=== PATIENT | female | born 1995 | race Caucasian/White ===

== ENCOUNTER 2018-04-27 19:45 | Emergency (ER) | payer OTHER ==
--- NOTE | 2018-04-27 20:03 | EDM.PDOC ---
ED HPI GENERAL MEDICAL PROBLEM - General Chief Complaint: Lower Extremity Injury/Pain Stated Complaint: HURT RT ANKLE AT WORK Time Seen by Provider: 04/27/18 19:47 Source of Information: Reports: Patient History Limitations: Reports: No Limitations - History of Present Illness INITIAL COMMENTS - FREE TEXT/NARRATIVE: HISTORY AND PHYSICAL: History of present illness: Patient is a 22-year-old female who presents to the emergency room today with complaints of right ankle pain. She states she rolled her ankle while at work yesterday. Since that time she has been resting, icing and elevating the affected extremity but has not found relief. She states today she had been walking on her affected extremity all day and has had increased pain. Review of systems: As per history of present illness and below otherwise all systems reviewed and negative. Past medical history: As per history of present illness and as reviewed below otherwise noncontributory. Surgical history: As per history of present illness and as reviewed below otherwise noncontributory. Social history: No reported history of drug or alcohol abuse. Family history: As per history of present illness and as reviewed below otherwise noncontributory. Physical exam: General: Well-developed and well-nourished 22-year-old female. Alert and oriented. Nontoxic appearing and in no acute distress. HEENT: Atraumatic, normocephalic, pupils equal and reactive bilaterally, negative for conjunctival pallor or scleral icterus, mucous membranes moist, throat clear, neck supple, nontender, trachea midline. No drooling or trismus noted. No meningeal signs Lungs: Clear to auscultation, breath sounds equal bilaterally, chest nontender. Heart: S1S2, regular rate and rhythm without overt murmur Abdomen: Soft, nondistended, nontender. Negative for masses or hepatosplenomegaly. Negative for costovertebral tenderness. Pelvis: Stable nontender. Genitourinary: Deferred. Rectal: Deferred. Skin: Intact, warm, dry. No lesions or rashes noted. Extremities: Moves all extremities per self without difficulty or deficits, mild tenderness to the anterior and lateral malleolus on the right. Strong pedal and pretibial pulse area and capillary refill less than 3 seconds, negative for cords or calf pain. Neurovascular unremarkable. Neuro: Awake, alert, oriented. Cranial nerves II through XII unremarkable. Cerebellum unremarkable. Motor and sensory unremarkable throughout. Exam nonfocal. Notes: X-ray shows no evidence of fracture or dislocation. Place patient in stirrup/ Aircast splint along with crutches. Supportive care measures were reviewed and discussed. She voices understanding and is agreeable to plan of care. Denies any further questions or concerns at this time. Diagnostics: X-ray Therapeutics: Stirrup splint, crutches Prescription: Diclofenac 50 mg TID PRN Impression: Right Ankle Pain Plan: 1. Rest, ice, elevate the affected extremity. Please wear the splint as directed. 2. Tylenol and/or Ibuprofen as needed for pain management. 3. Follow up with the Orthopedic provider as we discussed. Return to the ED as needed and as discussed. Definitive disposition and diagnosis as appropriate pending reevaluation and review of above. - Related Data Allergies Allergy/AdvReac Type Severity Reaction Status Date / Time No Known Allergies Allergy Verified 06/04/16 07:26 Home Meds: Home Meds Control 1 cap PO DAILY 06/04/16 [History] Past Medical History - Past Surgical History HEENT Surgical History: Reports: Adenoidectomy, Myringotomy w Tube(s), Tonsillectomy, Other (See Below) Social & Family History - Family History Family Medical History: Noncontributory Review of Systems - Review of Systems Review Of Systems: ROS reveals no pertinent complaints other than HPI. ED EXAM, GENERAL - Physical Exam Exam: See Below (See dictation) Course - Vital Signs Last Recorded V/S: Last Vital Signs Temp 97.8 F 04/27/18 20:07 Pulse Resp BP Pulse Ox - Orders/Labs/Meds Orders: Active Orders 24 hr Category Date Time Status Ankle Min 3V Rt [CR] Stat Exams 04/27/18 19:47 Ordered DME for Discharge [COMM] Stat Oth 04/27/18 19:47 Ordered Departure - Departure Time of Disposition: 20:32 Disposition: Home, Self-Care 01 Clinical Impression: Right ankle injury Qualifiers: Encounter type: initial encounter Qualified Code(s): S99.911A - Unspecified injury of right ankle, initial encounter - Discharge Information Instructions: Ankle Sprain, [id number] Forms: ED Department Discharge Additional Instructions: The following information is given to patients seen in the emergency department who are being discharged to home. This information is to outline your options for follow-up care. We provide all patients seen in our emergency department with a follow-up referral. The need for follow-up, as well as the timing and circumstances, are variable depending upon the specifics of your emergency department visit. If you don't have a primary care physician on staff, we will provide you with a referral. We always advise you to contact your personal physician following an emergency department visit to inform them of the circumstance of the visit and for follow-up with them and/or the need for any referrals to a consulting specialist. The emergency department will also refer you to a specialist when appropriate. This referral assures that you have the opportunity for follow-up care with a specialist. All of these measure are taken in an effort to provide you with optimal care, which includes your follow-up. Under all circumstances we always encourage you to contact your private physician who remains a resource for coordinating your care. When calling for follow-up care, please make the office aware that this follow-up is from your recent emergency room visit. If for any reason you are refused follow-up, please contact the [facility] Emergency Department at and asked to speak to the emergency department charge nurse. [facility] [address] [place] [address] [id number] [facility] - [facility] Professional [address], [address] [place] [address] 1. Rest, ice, elevate the affected extremity. Please wear the splint as directed. 2. Tylenol and/or Ibuprofen as needed for pain management. 3. Follow up with the Orthopedic provider as we discussed. Return to the ED as needed and as discussed. - My Orders Last 24 Hours: My Active Orders 04/27/18 19:47 Ankle Min 3V Rt [CR] Stat DME for Discharge [COMM] Stat - Assessment/Plan Last 24 Hours: My Active Orders 04/27/18 19:47 Ankle Min 3V Rt [CR] Stat DME for Discharge [COMM] Stat
[2018-04-27 20:49] VITALS: BP 119/72
--- NOTE | 2018-04-28 13:04 | CR ---
EXAM DATE: 04/27/18 PATIENT'S AGE: 22 Patient: ROMAINE GIRARD Facility: [place], [place] Site . Site : 1996 Study: XRay Extremity Right ankle [id number]/16/2018 8:24:16 PM Ordering Physician: Doctor Burrows Final Report: Indication: Injury and pain Technique: Right ankle 3 views. Comparison: None Findings: Bones: Alignment is normal. No fractures or bone lesions. Joint spaces: Unremarkable. Soft tissues: Unremarkable. Impression: No sign of acute injury. Dictated by Ant Meeks MD @ Apr 27 2018 8:34PM (Electronic Signature) Report Signed by Proxy. ARGENIS
== END 2018-04-27 20:49 | disposition home or self-care (01) ==
LOC: MW.ED 19:45
DX: S99.911A Unspecified injury of right ankle, initial encounter (principal); X50.1XXA Overexertion from prolonged static or awkward postures, initial encounter; Y99.0 Civilian activity done for income or pay; Z79.3 Long term (current) use of hormonal contraceptives
CPT/HCPCS: 73610-26-RT; 73610-RT; 99283

== ENCOUNTER 2018-05-13 21:58 | Inpatient (IN) | payer OTHER ==
[2018-05-13] MEDS ORDERED: Sodium Chloride 0.9% 2.5 ML Syringe FLUSH PRN (22:27)
[2018-05-13] MEDS ORDERED: Sodium Chloride 0.9% 1,000 ML IV ONE (22:27)
[2018-05-13] MEDS ORDERED: Sodium Chloride 0.9% 10 ML Syringe FLUSH PRN (22:27)
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
[2018-05-13 22:42] LABS: CHLORIDE,CL 103 mmol/L (98-107); SODIUM,NA 137 mmol/L (136-145)
[2018-05-13] MEDS ORDERED: Iopamidol 755 MG/ML 500 ML Multipack Bottle IVPUSH STA (23:10)
[2018-05-14] MEDS ORDERED: Lidocaine 1% 50 ML MDV ONE (01:34)
[2018-05-14] MEDS ORDERED: Lidocaine 1% with EPINEPHrine 1:100,000 20 ML MDV ONE (01:37)
[2018-05-14] MEDS ORDERED: Morphine 2 MG/ML Syringe ONE (01:44)
[2018-05-14] MEDS ORDERED: Morphine 10 MG/ML Syringe ONE (01:51)
[2018-05-14] MEDS ORDERED: Morphine 2 MG/ML Syringe IVPUSH ONE (02:09)
[2018-05-14] MEDS ORDERED: Ondansetron 4 MG/2 ML SDV IVPUSH PRN (02:37)
[2018-05-14] MEDS ORDERED: Morphine 2 MG/ML Syringe IVPUSH PRN (02:38)
[2018-05-14] MEDS ORDERED: ceFAZolin 2 GM in Premix Bag 1 BAG IV ONE (02:39)
[2018-05-14] MEDS ORDERED: Lactated Ringers 1,000 ML IV SCH (02:45)
--- NOTE | 2018-05-14 02:49 | PCM.OPNOTE ---
- General Post-Op/Procedure Note Date of Surgery/Procedure: 05/14/18 Operative Procedure(s): chest tube placement to L chest Findings: L ptx, with small component of tension ptx, 20 fr chest tube placed; cxr no ptx , tube is in good position; [id number] Pre Op Diagnosis: L ptx Post-Op Diagnosis: Same Anesthesia Technique: Moderate Sedation Primary Surgeon: Og Calixto Complications: None Condition: Good
[2018-05-14] MEDS ORDERED: Morphine 10 MG/ML Syringe IVPUSH ONE (02:53)
--- NOTE | 2018-05-14 02:53 | PCM.SN ---
- Free Text/Narrative Note: ptx L, 20 fr chest tube placed; ptx resolved; on 20cm water suction; pt doing fine
[2018-05-14] MEDS ORDERED: Lidocaine 1% with EPINEPHrine 1:100,000 20 ML MDV INJECT ONE (02:58)
[2018-05-14] MEDS: Acetaminophen/oxyCODONE 325-5 MG Tab PO PRN ×4 (05:17→20:14)
--- NOTE | 2018-05-14 10:47 | PCM.SURGPN ---
- General Info Date of Service: 05/14/18 POD#: 0 Functional Status: Reports: Pain Controlled - Review of Systems General: Reports: No Symptoms Cardiovascular: Reports: No Symptoms Gastrointestinal: Reports: No Symptoms (collin po, denied SOB/chest pain) - Patient Data Vitals - Most Recent: Last Vital Signs Temp 98.6 F 05/14/18 08:00 Pulse 85 05/14/18 08:00 Resp 18 05/14/18 08:00 BP 123/80 05/14/18 08:00 Pulse Ox 100 05/14/18 08:00 Weight - Most Recent: 119 lb 0.794 oz I&O - Last 24 Hours: Intake & Output 05/13/18 05/14/18 05/14/18 22:59 06:59 14:59 Intake Total 60 Output Total 20 Balance 40 Lab Results Last 24 Hrs: Laboratory Results - last 24 hr 05/13/18 05/13/18 05/13/18 Range/Units 22:00 22:00 22:00 WBC 17.06 H (4.0-11.0) K/uL RBC 4.81 (4.30-5.90) M/uL Hgb 13.4 (12.0-16.0) g/dL Hct 39.4 (36.0-46.0) % MCV 81.9 (80.0-98.0) fL MCH 27.9 (27.0-32.0) pg MCHC 34.0 (31.0-37.0) g/dL RDW Std Deviation 40.1 (28.0-62.0) fl RDW Coeff of David 13 (11.0-15.0) % Plt Count 373 (150-400) K/uL MPV 9.00 (7.40-12.00) fL Neut % (Auto) 76.2 (48.0-80.0) % Lymph % (Auto) 15.9 L (16.0-40.0) % Coal % (Auto) 7.2 (0.0-15.0) % Eos % (Auto) 0.4 (0.0-7.0) % Baso % (Auto) 0.3 (0.0-1.5) % Neut # (Auto) 13.0 H (1.4-5.7) K/uL Lymph # (Auto) 2.7 H (0.6-2.4) K/uL Coal # (Auto) 1.2 H (0.0-0.8) K/uL Eos # (Auto) 0.1 (0.0-0.7) K/uL Baso # (Auto) 0.1 (0.0-0.1) K/uL Nucleated RBC % 0.0 /100WBC Nucleated RBCs # 0 K/uL Sodium 137 (136-145) mmol/L Potassium 3.4 L (3.5-5.1) mmol/L Chloride 103 (98-107) mmol/L Carbon Dioxide 26.3 (21.0-32.0) mmol/L BUN 11 (7.0-18.0) mg/dL Creatinine 0.9 (0.6-1.0) mg/dL Est Cr Clr Drug Dosing TNP Estimated GFR (MDRD) > 60.0 ml/min Glucose 113 H (74-106) mg/dL Calcium 9.0 (8.5-10.1) mg/dL Total Bilirubin 0.3 (0.2-1.0) mg/dL AST 53 H (15-37) IU/L ALT 49 (14-63) IU/L Alkaline Phosphatase 105 (46-116) U/L Total Protein 8.3 H (6.4-8.2) g/dL Albumin 4.0 (3.4-5.0) g/dL Globulin 4.3 H (2.0-3.5) g/dL Albumin/Globulin Ratio 0.9 L (1.3-2.8) HCG, Qual NEGATIVE (NEG) Urine Color Urine Appearance Urine pH (5.0-8.0) Ur Specific [place] (1.001-1.035) Urine Protein (NEGATIVE) mg/dL Urine Glucose (UA) (NEGATIVE) mg/dL Urine Ketones (NEGATIVE) mg/dL Urine Occult Blood (NEGATIVE) Urine Nitrite (NEGATIVE) Urine Bilirubin (NEGATIVE) Urine Urobilinogen (<2.0) EU/dL Ur Leukocyte Esterase (NEGATIVE) Urine RBC (0-2/HPF) Urine WBC (0-5/HPF) Ur Epithelial Cells (NONE-FEW) Urine Bacteria (NEGATIVE) Urine Opiates Screen (NEGATIVE) Ur Oxycodone Screen (NEGATIVE) Urine Methadone Screen (NEGATIVE) Ur Barbiturates Screen (NEGATIVE) Ur Phencyclidine Scrn (NEGATIVE) Ur Amphetamine Screen (NEGATIVE) U Methamphetamines Scrn (NEGATIVE) U Benzodiazepines Scrn (NEGATIVE) U Cocaine Metab Screen (NEGATIVE) U Marijuana (THC) Screen (NEGATIVE) Ethyl Alcohol 5 mg/dL 05/14/18 05/14/18 Range/Units 05:30 05:30 WBC (4.0-11.0) K/uL RBC (4.30-5.90) M/uL Hgb (12.0-16.0) g/dL Hct (36.0-46.0) % MCV (80.0-98.0) fL MCH (27.0-32.0) pg MCHC (31.0-37.0) g/dL RDW Std Deviation (28.0-62.0) fl RDW Coeff of David (11.0-15.0) % Plt Count (150-400) K/uL MPV (7.40-12.00) fL Neut % (Auto) (48.0-80.0) % Lymph % (Auto) (16.0-40.0) % Coal % (Auto) (0.0-15.0) % Eos % (Auto) (0.0-7.0) % Baso % (Auto) (0.0-1.5) % Neut # (Auto) (1.4-5.7) K/uL Lymph # (Auto) (0.6-2.4) K/uL Coal # (Auto) (0.0-0.8) K/uL Eos # (Auto) (0.0-0.7) K/uL Baso # (Auto) (0.0-0.1) K/uL Nucleated RBC % /100WBC Nucleated RBCs # K/uL Sodium (136-145) mmol/L Potassium (3.5-5.1) mmol/L Chloride (98-107) mmol/L Carbon Dioxide (21.0-32.0) mmol/L BUN (7.0-18.0) mg/dL Creatinine (0.6-1.0) mg/dL Est Cr Clr Drug Dosing Estimated GFR (MDRD) ml/min Glucose (74-106) mg/dL Calcium (8.5-10.1) mg/dL Total Bilirubin (0.2-1.0) mg/dL AST (15-37) IU/L ALT (14-63) IU/L Alkaline Phosphatase (46-116) U/L Total Protein (6.4-8.2) g/dL Albumin (3.4-5.0) g/dL Globulin (2.0-3.5) g/dL Albumin/Globulin Ratio (1.3-2.8) HCG, Qual (NEG) Urine Color YELLOW Urine Appearance HAZY Urine pH 6.0 (5.0-8.0) Ur Specific [place] <= 1.005 (1.001-1.035) Urine Protein NEGATIVE (NEGATIVE) mg/dL Urine Glucose (UA) 100 H (NEGATIVE) mg/dL Urine Ketones NEGATIVE (NEGATIVE) mg/dL Urine Occult Blood LARGE H (NEGATIVE) Urine Nitrite NEGATIVE (NEGATIVE) Urine Bilirubin NEGATIVE (NEGATIVE) Urine Urobilinogen 0.2 (<2.0) EU/dL Ur Leukocyte Esterase NEGATIVE (NEGATIVE) Urine RBC 2-4 (0-2/HPF) Urine WBC 1-3 (0-5/HPF) Ur Epithelial Cells FEW (NONE-FEW) Urine Bacteria FEW (NEGATIVE) Urine Opiates Screen POSITIVE (NEGATIVE) Ur Oxycodone Screen NEGATIVE (NEGATIVE) Urine Methadone Screen NEGATIVE (NEGATIVE) Ur Barbiturates Screen NEGATIVE (NEGATIVE) Ur Phencyclidine Scrn NEGATIVE (NEGATIVE) Ur Amphetamine Screen NEGATIVE (NEGATIVE) U Methamphetamines Scrn NEGATIVE (NEGATIVE) U Benzodiazepines Scrn NEGATIVE (NEGATIVE) U Cocaine Metab Screen NEGATIVE (NEGATIVE) U Marijuana (THC) Screen NEGATIVE (NEGATIVE) Ethyl Alcohol mg/dL Med Orders - Current: Current Medications Morphine Sulfate (Morphine) 2 mg IVPUSH Q4H PRN PRN Reason: Pain Ondansetron HCl (Zofran) 4 mg IVPUSH Q8H PRN PRN Reason: Nausea/Vomiting Oxycodone/Acetaminophen (Percocet 325-5 Mg) 1 tab PO Q4H PRN PRN Reason: Pain Last Admin: 05/14/18 09:28 Dose: 1 tab Sodium Chloride (Saline Flush) 10 ml FLUSH ASDIRECTED PRN PRN Reason: Keep Vein Open Sodium Chloride (Saline Flush) 2.5 ml FLUSH ASDIRECTED PRN PRN Reason: Keep Vein Open Discontinued Medications Sodium Chloride (Normal Saline) 1,000 mls @ 999 mls/hr IV STAT ONE Stop: 05/13/18 23:27 Last Admin: 05/13/18 23:03 Dose: 999 mls/hr Lactated Ringer's (Ringers, Lactated) 1,000 mls @ 125 mls/hr IV ASDIRECTED WONG Last Admin: 05/14/18 03:19 Dose: 125 mls/hr Cefazolin Sodium/Dextrose 2 gm (/ Premix) 50 mls @ 100 mls/hr IV ONETIME ONE Stop: 05/14/18 03:08 Last Admin: 05/14/18 03:19 Dose: 100 mls/hr Iopamidol (Isovue Multipack-370 (76%)) 100 ml IVPUSH ONETIME STA Stop: 05/13/18 23:11 Last Admin: 05/13/18 23:13 Dose: 100 ml Lidocaine HCl (Xylocaine 1%) Confirm Administered Dose 50 ml .ROUTE .STK-MED ONE Stop: 05/14/18 01:35 Last Admin: 05/14/18 02:59 Dose: Not Given Lidocaine/Epinephrine (Xylocaine 1% With Epinephrine 1:100,000) Confirm Administered Dose 20 ml .ROUTE .STK-MED ONE Stop: 05/14/18 01:38 Last Admin: 05/14/18 02:59 Dose: Not Given Lidocaine/Epinephrine (Xylocaine 1% With Epinephrine 1:100,000) 20 ml INJECT ONETIME ONE Stop: 05/14/18 02:59 Last Admin: 05/14/18 02:59 Dose: 20 ml Morphine Sulfate (Morphine) Confirm Administered Dose 4 mg .ROUTE .STK-MED ONE Stop: 05/14/18 01:45 Last Admin: 05/14/18 02:56 Dose: Not Given Morphine Sulfate (Morphine) Confirm Administered Dose 10 mg .ROUTE .STK-MED ONE Stop: 05/14/18 01:52 Last Admin: 05/14/18 02:57 Dose: Not Given Morphine Sulfate (Morphine) 3 mg IVPUSH ONETIME ONE Stop: 05/14/18 02:10 Last Admin: 05/14/18 02:54 Dose: 3 mg Morphine Sulfate (Morphine) 10 mg IVPUSH ONETIME ONE Stop: 05/14/18 02:54 Last Admin: 05/14/18 02:55 Dose: 10 mg - Exam Wound/Incisions: Healing Well (B BS, no cutaneous crepitus) - Problem List Review Problem List Initiated/Reviewed/Updated: Yes - My Orders Last 24 Hours: Active Orders 24 hr Category Date Time Status Admission Status [Patient Status] [ADT] Stat ADT 05/14/18 02:30 Active Cardiac Monitoring [RC] Q8H Care 05/13/18 22:26 Active Chest Tube Management [RC] ASDIRECTED Care 05/14/18 02:33 Active EKG Documentation Completion [RC] STAT Care 05/13/18 22:26 Active Telemetry Monitoring [Cardiac Monitoring] [RC] . Care 05/14/18 02:52 Active DIRECTED Regular Diet [DIET] Diet 05/14/18 Lunch Active Abdomen Pelvis w Cont [CT] Stat Exams 05/13/18 22:27 Taken CXR [Chest 2V] [CR] AM Exams 05/15/18 05:11 Ordered CXR [Chest 2V] [CR] AM Exams 05/16/18 05:11 Ordered CXR [Chest 2V] [CR] AM Exams 05/17/18 05:11 Ordered Cervical Spine wo Cont [CT] Stat Exams 05/13/18 22:27 Taken Chest 1V Frontal [CR] Routine Exams 05/14/18 05:11 Taken Chest 1V Frontal [CR] Stat Exams 05/14/18 00:57 Taken Chest w Cont [CT] Stat Exams 05/13/18 22:27 Taken Head wo Cont [CT] Stat Exams 05/13/18 22:27 Taken Lumbar Spine wo Cont [CT] Stat Exams 05/13/18 22:27 Taken Thoracic Spine wo Cont [CT] Stat Exams 05/13/18 22:27 Taken DRUG SCREEN, URINE [URCHEM] Stat Lab 05/14/18 05:30 Ordered UA W/MICROSCOPIC [URIN] Stat Lab 05/14/18 05:30 Ordered Acetaminophen/oxyCODONE [Percocet 325-5 MG] Med 05/14/18 02:37 Active 1 tab PO Q4H PRN Morphine Med 05/14/18 02:38 Active 2 mg IVPUSH Q4H PRN Ondansetron [Zofran] Med 05/14/18 02:37 Active 4 mg IVPUSH Q8H PRN Sodium Chloride 0.9% [Saline Flush] Med 05/13/18 22:27 Active 10 ml FLUSH ASDIRECTED PRN Sodium Chloride 0.9% [Saline Flush] Med 05/13/18 22:27 Active 2.5 ml FLUSH ASDIRECTED PRN Saline Lock Insert [OM.PC] Stat Oth 05/13/18 22:26 Ordered Medication Orders Morphine Sulfate (Morphine) 2 mg IVPUSH Q4H PRN PRN Reason: Pain Ondansetron HCl (Zofran) 4 mg IVPUSH Q8H PRN PRN Reason: Nausea/Vomiting Oxycodone/Acetaminophen (Percocet 325-5 Mg) 1 tab PO Q4H PRN PRN Reason: Pain Last Admin: 05/14/18 09:28 Dose: 1 tab Admin: 05/14/18 05:17 Dose: 1 tab Sodium Chloride (Saline Flush) 10 ml FLUSH ASDIRECTED PRN PRN Reason: Keep Vein Open Sodium Chloride (Saline Flush) 2.5 ml FLUSH ASDIRECTED PRN PRN Reason: Keep Vein Open - Assessment Assessment (Free Text/Narrative):: doing well, uneventful overnight; no air leak, cxr reading pending; continue 20cm suction; regular diet, decrease ivf - Plan Plan (Free Text/Narrative):: doing well, uneventful overnight; no air leak, cxr reading pending; continue 20cm suction; regular diet, decrease ivf
[2018-05-15] MEDS ORDERED: Amoxicillin/Clavulanate K 875-125 MG Tab PO SCH
[2018-05-15] MEDS ORDERED: Acetaminophen/HYDROcodone 325-5 MG Tab PO SCH
[2018-05-15] MEDS: Acetaminophen/oxyCODONE 325-5 MG Tab PO PRN ×5 (01:33→20:31)
--- NOTE | 2018-05-15 10:01 | PCM.SURGPN ---
- General Info Date of Service: 05/15/18 POD#: 1 - Review of Systems General: Reports: No Symptoms Pulmonary: Reports: No Symptoms (cxr, no ptx) Gastrointestinal: Reports: No Symptoms - Patient Data Vitals - Most Recent: Last Vital Signs Temp 98.5 F 05/15/18 07:44 Pulse 69 05/15/18 04:00 Resp 12 05/15/18 07:44 BP 111/63 05/15/18 07:44 Pulse Ox 98 05/15/18 07:44 Weight - Most Recent: 119 lb 0.794 oz I&O - Last 24 Hours: Intake & Output 05/14/18 05/15/18 05/15/18 22:59 06:59 14:59 Intake Total 500 200 Output Total 1845 30 Balance -1345 170 Med Orders - Current: Current Medications Morphine Sulfate (Morphine) 2 mg IVPUSH Q4H PRN PRN Reason: Pain Ondansetron HCl (Zofran) 4 mg IVPUSH Q8H PRN PRN Reason: Nausea/Vomiting Oxycodone/Acetaminophen (Percocet 325-5 Mg) 1 tab PO Q4H PRN PRN Reason: Pain Last Admin: 05/15/18 06:52 Dose: 1 tab Sodium Chloride (Saline Flush) 10 ml FLUSH ASDIRECTED PRN PRN Reason: Keep Vein Open Sodium Chloride (Saline Flush) 2.5 ml FLUSH ASDIRECTED PRN PRN Reason: Keep Vein Open Discontinued Medications Sodium Chloride (Normal Saline) 1,000 mls @ 999 mls/hr IV STAT ONE Stop: 05/13/18 23:27 Last Admin: 05/13/18 23:03 Dose: 999 mls/hr Lactated Ringer's (Ringers, Lactated) 1,000 mls @ 125 mls/hr IV ASDIRECTED WONG Last Admin: 05/14/18 03:19 Dose: 125 mls/hr Cefazolin Sodium/Dextrose 2 gm (/ Premix) 50 mls @ 100 mls/hr IV ONETIME ONE Stop: 05/14/18 03:08 Last Admin: 05/14/18 03:19 Dose: 100 mls/hr Iopamidol (Isovue Multipack-370 (76%)) 100 ml IVPUSH ONETIME STA Stop: 05/13/18 23:11 Last Admin: 05/13/18 23:13 Dose: 100 ml Lidocaine HCl (Xylocaine 1%) Confirm Administered Dose 50 ml .ROUTE .STK-MED ONE Stop: 05/14/18 01:35 Last Admin: 05/14/18 02:59 Dose: Not Given Lidocaine/Epinephrine (Xylocaine 1% With Epinephrine 1:100,000) Confirm Administered Dose 20 ml .ROUTE .STK-MED ONE Stop: 05/14/18 01:38 Last Admin: 05/14/18 02:59 Dose: Not Given Lidocaine/Epinephrine (Xylocaine 1% With Epinephrine 1:100,000) 20 ml INJECT ONETIME ONE Stop: 05/14/18 02:59 Last Admin: 05/14/18 02:59 Dose: 20 ml Morphine Sulfate (Morphine) Confirm Administered Dose 4 mg .ROUTE .STK-MED ONE Stop: 05/14/18 01:45 Last Admin: 05/14/18 02:56 Dose: Not Given Morphine Sulfate (Morphine) Confirm Administered Dose 10 mg .ROUTE .STThoroughCare-MED ONE Stop: 05/14/18 01:52 Last Admin: 05/14/18 02:57 Dose: Not Given Morphine Sulfate (Morphine) 3 mg IVPUSH ONETIME ONE Stop: 05/14/18 02:10 Last Admin: 05/14/18 02:54 Dose: 3 mg Morphine Sulfate (Morphine) 10 mg IVPUSH ONETIME ONE Stop: 05/14/18 02:54 Last Admin: 05/14/18 02:55 Dose: 10 mg - Exam General: Alert, Oriented Lungs: Clear to Auscultation - Problem List Review Problem List Initiated/Reviewed/Updated: Yes - My Orders Last 24 Hours: Active Orders 24 hr Category Date Time Status Ready for Discharge [RC] PER UNIT ROUTINE Care 05/15/18 09:54 Inactive Regular Diet [DIET] Diet 05/14/18 Lunch Active CXR [Chest 2V] [CR] AM Exams 05/15/18 05:11 Stop Req CXR [Chest 2V] [CR] AM Exams 05/16/18 05:11 Stop Req CXR [Chest 2V] [CR] AM Exams 05/17/18 05:11 Stop Req Chest 1V Frontal [CR] DAILY Exams 05/15/18 07:00 Ordered Chest 1V Frontal [CR] DAILY Exams 05/16/18 07:00 Ordered Resuscitation Status Routine Resus Stat 05/14/18 17:36 Ordered Medication Orders Morphine Sulfate (Morphine) 2 mg IVPUSH Q4H PRN PRN Reason: Pain Ondansetron HCl (Zofran) 4 mg IVPUSH Q8H PRN PRN Reason: Nausea/Vomiting Oxycodone/Acetaminophen (Percocet 325-5 Mg) 1 tab PO Q4H PRN PRN Reason: Pain Last Admin: 05/15/18 06:52 Dose: 1 tab Admin: 05/15/18 01:33 Dose: 1 tab Admin: 05/14/18 20:14 Dose: 1 tab Admin: 05/14/18 15:21 Dose: 1 tab Admin: 05/14/18 09:28 Dose: 1 tab Admin: 05/14/18 05:17 Dose: 1 tab Sodium Chloride (Saline Flush) 10 ml FLUSH ASDIRECTED PRN PRN Reason: Keep Vein Open Sodium Chloride (Saline Flush) 2.5 ml FLUSH ASDIRECTED PRN PRN Reason: Keep Vein Open - Assessment Assessment (Free Text/Narrative):: doing well; continue chest tube on suction; cxr tomorrow morning, possible water seal then, and dc chesttube tomorrow lunch, and home - Plan Plan (Free Text/Narrative):: doing well; continue chest tube on suction; cxr tomorrow morning, possible water seal then, and dc chesttube tomorrow lunch, and home
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
--- NOTE | 2018-05-15 12:50 | CT ---
EXAM DATE: 05/14/18 PATIENT'S AGE: 22 Patient: ROMAINE GIRARD Facility: [place], [place] Site . Site : 1995 Study: CT Spine Lumbar [id number]/1/2018 11:54:13 PM Ordering Physician: Eli Alexis Final Report: INDICATION: TECHNIQUE: CT lumbar spine without contrast. COMPARISON: FINDINGS: Vertebral alignment: Alignment is normal. Vertebrae: There are no fractures or suspicious bony lesions. Discs and facet joints: Disc spaces and facets are within normal limits. Extraspinal findings: Prevertebral soft tissues and visualized retroperitoneum are unremarkable. Displaced fracture left posterior 10th rib. IMPRESSION: No evidence of acute lumbar spine trauma. Left posterior 10th rib fracture. Dictated by Wilfredo Horton MD @ 05/14/2018 12:39:53 AM Dictated by: Wilfredo Horton MD @ 05/14/2018 00:39:56 (Electronic Signature) Report Signed by Proxy. [facility]
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
--- NOTE | 2018-05-15 12:52 | CR ---
EXAM DATE: 05/14/18 PATIENT'S AGE: 22 Patient: ROMAINE GIRARD Facility: [place], [place] Site . Site : 1995 Study: XRay Chest [id number]/2/2018 2:26:07 AM Ordering Physician: Eli Alexis Final Report: Indication: Chest tube placement Technique: Chest 1 view Comparison: A CT scan dated 05/13/2018. Findings/Impression: Cardiovascular and mediastinum: Heart size and vasculature are normal in caliber and appearance. Mediastinum is within normal limits. Lungs and pleural space: A left chest tube with the tip at the apex. A tiny residual left apical pneumothorax is difficult to exclude. Ill-defined biapical opacities suggestive of pulmonary contusions. An ill-defined left basilar opacity could represent atelectasis, evolving infiltrate or pulmonary contusion. No gross pleural effusions. Bones and soft tissues: Posterior left rib fractures again seen. Dictated by Angelo Benavides MD @ 05/14/2018 2:47:52 AM Dictated by: Angelo Benavides MD @ 05/14/2018 02:48:43 (Electronic Signature) Report Signed by Proxy. [facility]
--- NOTE | 2018-05-15 12:53 | CR ---
EXAM DATE: 05/14/18 PATIENT'S AGE: 22 Patient: ROMAINE GIRARD Facility: [place], [place] Site . Site : 1995 Study: XRay Chest [id number]/2/2018 10:01:27 AM Ordering Physician: Marily Foley Final Report: INDICATION: L ptx HISTORY: Pneumothorax. Follow-up. COMPARISON: Chest 1 view 05/14/2018, [address] of the chest 05/13/2018. TECHNIQUE: Chest one-view portable. FINDINGS: Left-sided chest tube, with its tip oriented near the left lung apex. No pneumothorax identified. Vague opacities are present about the left upper and left lower lung zones, with interval improvement. Mediastinal structures are normal. Lateral costophrenic sulci are sharp. Heart size and pulmonary vasculature are stable. Left-sided posterior rib fractures, which are better seen on the chest CT from 05/13/2018. IMPRESSION: 1. Left-sided chest tube, with its tip oriented near the left lung apex. 2. No pneumothorax or shift of mediastinal structures. Dictated by Adonay Coats MD @ 05/14/2018 10:19:48 AM Dictated by: Adonay Coats MD @ 05/14/2018 10:19:54 (Electronic Signature) Report Signed by Proxy. [facility]
--- NOTE | 2018-05-15 14:36 | CR ---
EXAM DATE: 05/14/18 PATIENT'S AGE: 22 Patient: ROMAINE GIRARD Facility: [place], [place] Site . Site : 1996 Study: XRay Chest [id number]/3/2018 7:14:54 AM Ordering Physician: Marily Foley Final Report: INDICATION: Re-evaluate pneumothorax. COMPARISON: Chest x-ray dated 14 May 2018. FINDINGS: A single portable chest x-ray shows a normal cardiac silhouette. The lungs show no focal pulmonary opacities. Sharp pleural margins. No pneumothorax. Left- sided chest tube. IMPRESSION: Left-sided chest tube. No pneumothorax. Dictated by Emiliano Kent MD @ 05/15/2018 7:32:36 AM Dictated by: Emiliano Kent MD @ 05/15/2018 07:32:47 (Electronic Signature) Report Signed by Proxy. [facility]
[2018-05-16] MEDS: Acetaminophen/oxyCODONE 325-5 MG Tab PO PRN ×4 (00:32→13:54)
--- NOTE | 2018-05-16 09:38 | PCM.SURGPN ---
- General Info Date of Service: 05/16/18 POD#: 2 Functional Status: Reports: Pain Controlled - Review of Systems General: Reports: No Symptoms Pulmonary: Reports: No Symptoms Gastrointestinal: Reports: No Symptoms - Patient Data Vitals - Most Recent: Last Vital Signs Temp 97.7 F 05/16/18 08:29 Pulse 81 05/16/18 04:00 Resp 17 05/16/18 08:29 BP 118/71 05/16/18 08:29 Pulse Ox 96 05/16/18 08:29 Weight - Most Recent: 119 lb 0.794 oz I&O - Last 24 Hours: Intake & Output 05/15/18 05/16/18 05/16/18 22:59 06:59 14:59 Intake Total 1100 1000 Output Total 25 40 Balance 1075 960 Med Orders - Current: Current Medications Morphine Sulfate (Morphine) 2 mg IVPUSH Q4H PRN PRN Reason: Pain Ondansetron HCl (Zofran) 4 mg IVPUSH Q8H PRN PRN Reason: Nausea/Vomiting Oxycodone/Acetaminophen (Percocet 325-5 Mg) 1 tab PO Q4H PRN PRN Reason: Pain Last Admin: 05/16/18 04:38 Dose: 1 tab Sodium Chloride (Saline Flush) 10 ml FLUSH ASDIRECTED PRN PRN Reason: Keep Vein Open Sodium Chloride (Saline Flush) 2.5 ml FLUSH ASDIRECTED PRN PRN Reason: Keep Vein Open Discontinued Medications Hydrocodone Bitart/Acetaminophen ([place] 325-5 Mg) 1 tab PO Q6H Stop: 05/15/18 23:59 Amoxicillin/Clavulanate Potassium (Augmentin 875 Mg/125 Mg) 1 tab PO BID Stop: 05/15/18 23:59 Sodium Chloride (Normal Saline) 1,000 mls @ 999 mls/hr IV STAT ONE Stop: 05/13/18 23:27 Last Admin: 05/13/18 23:03 Dose: 999 mls/hr Lactated Ringer's (Ringers, Lactated) 1,000 mls @ 125 mls/hr IV ASDIRECTED WONG Last Admin: 05/14/18 03:19 Dose: 125 mls/hr Cefazolin Sodium/Dextrose 2 gm (/ Premix) 50 mls @ 100 mls/hr IV ONETIME ONE Stop: 05/14/18 03:08 Last Admin: 05/14/18 03:19 Dose: 100 mls/hr Iopamidol (Isovue Multipack-370 (76%)) 100 ml IVPUSH ONETIME STA Stop: 05/13/18 23:11 Last Admin: 05/13/18 23:13 Dose: 100 ml Lidocaine HCl (Xylocaine 1%) Confirm Administered Dose 50 ml .ROUTE .STK-MED ONE Stop: 05/14/18 01:35 Last Admin: 05/14/18 02:59 Dose: Not Given Lidocaine/Epinephrine (Xylocaine 1% With Epinephrine 1:100,000) Confirm Administered Dose 20 ml .ROUTE .STK-MED ONE Stop: 05/14/18 01:38 Last Admin: 05/14/18 02:59 Dose: Not Given Lidocaine/Epinephrine (Xylocaine 1% With Epinephrine 1:100,000) 20 ml INJECT ONETIME ONE Stop: 05/14/18 02:59 Last Admin: 05/14/18 02:59 Dose: 20 ml Morphine Sulfate (Morphine) Confirm Administered Dose 4 mg .ROUTE .STK-MED ONE Stop: 05/14/18 01:45 Last Admin: 05/14/18 02:56 Dose: Not Given Morphine Sulfate (Morphine) Confirm Administered Dose 10 mg .ROUTE .STK-MED ONE Stop: 05/14/18 01:52 Last Admin: 05/14/18 02:57 Dose: Not Given Morphine Sulfate (Morphine) 3 mg IVPUSH ONETIME ONE Stop: 05/14/18 02:10 Last Admin: 05/14/18 02:54 Dose: 3 mg Morphine Sulfate (Morphine) 10 mg IVPUSH ONETIME ONE Stop: 05/14/18 02:54 Last Admin: 05/14/18 02:55 Dose: 10 mg - Exam General: Alert, Oriented Neck: Supple Lungs: Clear to Auscultation GI/Abdominal Exam: Soft, Non-Tender - Problem List Review Problem List Initiated/Reviewed/Updated: Yes - My Orders Last 24 Hours: Active Orders 24 hr Category Date Time Status Ready for Discharge [RC] PER UNIT ROUTINE Care 05/15/18 09:54 Inactive PT Evaluation and Treatment [CONS] Routine Cons 05/16/18 09:26 Active Chest 1V Frontal [CR] DAILY Exams 05/16/18 07:00 Taken Chest 1V Frontal [CR] Routine Exams 05/16/18 12:00 Ordered Foot 2V Lt [CR] Routine Exams 05/16/18 09:02 Ordered Medication Orders Morphine Sulfate (Morphine) 2 mg IVPUSH Q4H PRN PRN Reason: Pain Ondansetron HCl (Zofran) 4 mg IVPUSH Q8H PRN PRN Reason: Nausea/Vomiting Oxycodone/Acetaminophen (Percocet 325-5 Mg) 1 tab PO Q4H PRN PRN Reason: Pain Last Admin: 05/16/18 04:38 Dose: 1 tab Admin: 05/16/18 00:32 Dose: 1 tab Admin: 05/15/18 20:31 Dose: 1 tab Admin: 05/15/18 16:19 Dose: 1 tab Admin: 05/15/18 10:53 Dose: 1 tab Admin: 05/15/18 06:52 Dose: 1 tab Admin: 05/15/18 01:33 Dose: 1 tab Admin: 05/14/18 20:14 Dose: 1 tab Admin: 05/14/18 15:21 Dose: 1 tab Admin: 05/14/18 09:28 Dose: 1 tab Admin: 05/14/18 05:17 Dose: 1 tab Sodium Chloride (Saline Flush) 10 ml FLUSH ASDIRECTED PRN PRN Reason: Keep Vein Open Sodium Chloride (Saline Flush) 2.5 ml FLUSH ASDIRECTED PRN PRN Reason: Keep Vein Open - Assessment Assessment (Free Text/Narrative):: Doing well, uneventful, morning cxr, no ptx; water seal now, repeat cxr by 3pm; pull chesttube if lung is up, and home - Plan Plan (Free Text/Narrative):: Doing well, uneventful, morning cxr, no ptx; water seal now, repeat cxr by 3pm; pull chesttube if lung is up, and home
--- NOTE | 2018-05-16 10:04 | CR ---
EXAM DATE: 05/14/18 PATIENT'S AGE: 22 Patient: ROMAINE GIRARD Facility: [place], [place] Site . Site : 1995 Study: XRay Chest [id number]/4/2018 7:01:33 AM Ordering Physician: Marily Foley Final Report: INDICATION: Followup pneumothorax. TECHNIQUE: AP chest. COMPARISON: 05/15/2018. IMPRESSION: Left-sided chest tube is stable in position. Normal cardiac, mediastinal and hilar contours. Normal pulmonary vasculature. Improving left lower lobe pulmonary contusion. Right lung appears clear. No appreciable pleural fluid or pneumothorax. Left rib fractures are suboptimally. IMPRESSION: Stable position of the left-sided chest tube with no appreciable pneumothorax. Other findings as noted. Dictated by Xavier Small MD @ 05/16/2018 7:26:23 AM Dictated by: Xavier Small MD @ 05/16/2018 07:26:29 (Electronic Signature) Report Signed by Proxy. [facility]
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
--- NOTE | 2018-05-16 16:13 | PCM.SURGPN ---
- General Info Date of Service: 05/16/18 Functional Status: Reports: Pain Controlled - Review of Systems Pulmonary: Reports: No Symptoms (cxr 6 hrs after water seal, no ptx) Cardiovascular: Reports: No Symptoms Gastrointestinal: Reports: No Symptoms - Patient Data Vitals - Most Recent: Last Vital Signs Temp 97.7 F 05/16/18 11:50 Pulse 89 05/16/18 11:50 Resp 17 05/16/18 11:50 BP 130/74 05/16/18 11:50 Pulse Ox 96 05/16/18 11:50 Weight - Most Recent: 119 lb 0.794 oz I&O - Last 24 Hours: Intake & Output 05/16/18 05/16/18 05/16/18 06:59 14:59 22:59 Intake Total 1000 Output Total 40 Balance 960 Med Orders - Current: Current Medications Morphine Sulfate (Morphine) 2 mg IVPUSH Q4H PRN PRN Reason: Pain Last Admin: 05/16/18 15:48 Dose: 2 mg Ondansetron HCl (Zofran) 4 mg IVPUSH Q8H PRN PRN Reason: Nausea/Vomiting Oxycodone/Acetaminophen (Percocet 325-5 Mg) 1 tab PO Q4H PRN PRN Reason: Pain Last Admin: 05/16/18 13:54 Dose: 1 tab Sodium Chloride (Saline Flush) 10 ml FLUSH ASDIRECTED PRN PRN Reason: Keep Vein Open Sodium Chloride (Saline Flush) 2.5 ml FLUSH ASDIRECTED PRN PRN Reason: Keep Vein Open Discontinued Medications Hydrocodone Bitart/Acetaminophen ([place] 325-5 Mg) 1 tab PO Q6H Stop: 05/15/18 23:59 Amoxicillin/Clavulanate Potassium (Augmentin 875 Mg/125 Mg) 1 tab PO BID Stop: 05/15/18 23:59 Sodium Chloride (Normal Saline) 1,000 mls @ 999 mls/hr IV STAT ONE Stop: 05/13/18 23:27 Last Admin: 05/13/18 23:03 Dose: 999 mls/hr Lactated Ringer's (Ringers, Lactated) 1,000 mls @ 125 mls/hr IV ASDIRECTED WONG Last Admin: 05/14/18 03:19 Dose: 125 mls/hr Cefazolin Sodium/Dextrose 2 gm (/ Premix) 50 mls @ 100 mls/hr IV ONETIME ONE Stop: 05/14/18 03:08 Last Admin: 05/14/18 03:19 Dose: 100 mls/hr Iopamidol (Isovue Multipack-370 (76%)) 100 ml IVPUSH ONETIME STA Stop: 05/13/18 23:11 Last Admin: 05/13/18 23:13 Dose: 100 ml Lidocaine HCl (Xylocaine 1%) Confirm Administered Dose 50 ml .ROUTE .STK-MED ONE Stop: 05/14/18 01:35 Last Admin: 05/14/18 02:59 Dose: Not Given Lidocaine/Epinephrine (Xylocaine 1% With Epinephrine 1:100,000) Confirm Administered Dose 20 ml .ROUTE .STK-MED ONE Stop: 05/14/18 01:38 Last Admin: 05/14/18 02:59 Dose: Not Given Lidocaine/Epinephrine (Xylocaine 1% With Epinephrine 1:100,000) 20 ml INJECT ONETIME ONE Stop: 05/14/18 02:59 Last Admin: 05/14/18 02:59 Dose: 20 ml Morphine Sulfate (Morphine) Confirm Administered Dose 4 mg .ROUTE .STK-MED ONE Stop: 05/14/18 01:45 Last Admin: 05/14/18 02:56 Dose: Not Given Morphine Sulfate (Morphine) Confirm Administered Dose 10 mg .ROUTE .STK-MED ONE Stop: 05/14/18 01:52 Last Admin: 05/14/18 02:57 Dose: Not Given Morphine Sulfate (Morphine) 3 mg IVPUSH ONETIME ONE Stop: 05/14/18 02:10 Last Admin: 05/14/18 02:54 Dose: 3 mg Morphine Sulfate (Morphine) 10 mg IVPUSH ONETIME ONE Stop: 05/14/18 02:54 Last Admin: 05/14/18 02:55 Dose: 10 mg - Exam Wound/Incisions: Healing Well General: Alert, Oriented Lungs: Clear to Auscultation, Normal Respiratory Effort GI/Abdominal Exam: Soft - Problem List Review Problem List Initiated/Reviewed/Updated: Yes - My Orders Last 24 Hours: Active Orders 24 hr Category Date Time Status Ready for Discharge [RC] PER UNIT ROUTINE Care 05/16/18 16:11 Ordered PT Evaluation and Treatment [CONS] Routine Cons 05/16/18 09:26 Active Chest 1V Frontal [CR] Routine Exams 05/16/18 15:00 Taken Foot 2V Lt [CR] Routine Exams 05/16/18 09:02 Taken Medication Orders Morphine Sulfate (Morphine) 2 mg IVPUSH Q4H PRN PRN Reason: Pain Last Admin: 05/16/18 15:48 Dose: 2 mg Ondansetron HCl (Zofran) 4 mg IVPUSH Q8H PRN PRN Reason: Nausea/Vomiting Oxycodone/Acetaminophen (Percocet 325-5 Mg) 1 tab PO Q4H PRN PRN Reason: Pain Last Admin: 05/16/18 13:54 Dose: 1 tab Admin: 05/16/18 09:35 Dose: 1 tab Admin: 05/16/18 04:38 Dose: 1 tab Admin: 05/16/18 00:32 Dose: 1 tab Admin: 05/15/18 20:31 Dose: 1 tab Admin: 05/15/18 16:19 Dose: 1 tab Admin: 05/15/18 10:53 Dose: 1 tab Admin: 05/15/18 06:52 Dose: 1 tab Admin: 05/15/18 01:33 Dose: 1 tab Admin: 05/14/18 20:14 Dose: 1 tab Admin: 05/14/18 15:21 Dose: 1 tab Admin: 05/14/18 09:28 Dose: 1 tab Admin: 05/14/18 05:17 Dose: 1 tab Sodium Chloride (Saline Flush) 10 ml FLUSH ASDIRECTED PRN PRN Reason: Keep Vein Open Sodium Chloride (Saline Flush) 2.5 ml FLUSH ASDIRECTED PRN PRN Reason: Keep Vein Open - Assessment Assessment (Free Text/Narrative):: doing well; dc chest tube; still stitches on chest tube site to be remove 1 - 2wks; pain scripts and fu appt - Plan Plan (Free Text/Narrative):: doing well; dc chest tube; still stitches on chest tube site to be remove 1 - 2wks; pain scripts and fu appt
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
--- NOTE | 2018-05-16 16:49 | CR ---
EXAMINATION: Portable chest radiograph. HISTORY: Pneumothorax. FINDINGS: The trachea is midline. The cardiomediastinal silhouette is within normal limits. There is a left-josé miguel ed chest tube noted. Mild left basilar atelectasis. Osseous structures appear unremarkable. IMPRESSION: Left-sided chest tube in place without a visualized pneumothorax.
[2018-05-16 17:35] VITALS: BP 125/82
--- NOTE | 2018-05-17 11:31 | CR ---
EXAMINATION: Left foot HISTORY: Pain COMPARISON: None TECHNIQUE: 2 views FINDINGS/IMPRESSION: There is no acute osseous abnormality, dislocation, or fracture. Bone mineraliza tion and joint spaces are preserved. No focal soft tissue swelling or foreign body.
== END 2018-05-16 17:36 | disposition home or self-care (01) | DRG 201 ==
LOC: MW.ED 21:58 → MW.MS 05-14 02:30
PROVIDERS: ADMIT Surgery; ATTEND Surgery
PROC: 0W9B00Z Drainage of Left Pleural Cavity with Drainage Device, Open Approach (ICD-10-PCS; principal; 2018-05-14)
DX: S27.0XXA Traumatic pneumothorax, initial encounter (principal); V86.65XA Passenger of 3- or 4- wheeled all-terrain vehicle (ATV) injured in nontraffic accident, initial encounter
CPT/HCPCS: 36415; 70450; 70450-26; 71045; 71045-26; 71260; 71260-26; 72125; 72125-26; 72128-26; 72131-26; 73620-26-LT; 73620-LT; 74177; 74177-26; 80053; 80305-QW; 81001; 84703; 85025; 93005; 96361; 96374; 96375; 97161-GP; 99285-25; A9270-GY; G0390; G0480; J0690; J2270; J7040; J7120; Q9967

== ENCOUNTER 2018-11-04 12:10 | Emergency (ER) | payer BC, OTHER ==
[2018-11-04] MEDS ORDERED: Sodium Chloride 0.9% 2.5 ML Syringe FLUSH PRN (12:35)
[2018-11-04] MEDS ORDERED: Sodium Chloride 0.9% 1,000 ML IV ONE (12:35)
[2018-11-04] MEDS ORDERED: Sodium Chloride 0.9% 10 ML Syringe FLUSH PRN (12:35)
[2018-11-04] MEDS ORDERED: Ondansetron 4 MG/2 ML SDV IVPUSH ONE (12:35)
--- NOTE | 2018-11-04 12:35 | EDM.PDOC ---
ED HPI GENERAL MEDICAL PROBLEM - General Chief Complaint: Headache Stated Complaint: MIGRAINE AND VOMITING Time Seen by Provider: 11/04/18 12:35 Source of Information: Reports: Patient History Limitations: Reports: No Limitations - History of Present Illness INITIAL COMMENTS - FREE TEXT/NARRATIVE: HISTORY AND PHYSICAL: History of present illness: Patient is a 23 year female here with complaint of headache and vomiting. She states she woke up this morning with a headache and has had 5 episodes of vomiting today. She has a history of "migraine headaches" but has never had an official diagnosis. She usually takes Excedrin which resolves her symptoms but did not take any today. She states this headache is not new or worse from previous headaches. She denies photophobia, phonophobia, head injury or trauma, fevers, chills, abdominal pain, diarrhea, urinary symptoms, chest pain, shortness of breath. Review of systems: As per history of present illness and below otherwise all systems reviewed and negative. Past medical history: As per history of present illness and as reviewed below otherwise noncontributory. Surgical history: As per history of present illness and as reviewed below otherwise noncontributory. Social history: No reported history of drug or alcohol abuse. Family history: As per history of present illness and as reviewed below otherwise noncontributory. Physical exam: General: Patient sitting comfortably in no acute distress and nontoxic appearing HEENT: Atraumatic, normocephalic, pupils reactive, negative for conjunctival pallor or scleral icterus, mucous membranes moist, throat clear, neck supple, nontender, trachea midline. No meningeal signs. Lungs: Clear to auscultation, breath sounds equal bilaterally, chest nontender. Heart: S1S2, regular, negative for clicks, rubs, or overt murmur. Abdomen: Soft, nondistended, nontender. Negative for masses or hepatosplenomegaly. Negative for costovertebral tenderness. Pelvis: Stable nontender. Genitourinary: Deferred. Rectal: Deferred. Extremities: Atraumatic, negative for cords or calf pain. Neurovascular unremarkable. Neuro: Awake, alert, oriented. Cranial nerves II through XII unremarkable. Cerebellum unremarkable. Motor and sensory unremarkable throughout. Exam nonfocal. Notes: Headache and emesis resolved with therapeutics Diagnostics: CBC, CMP Declined head CT Therapeutics: 1 L normal saline IV 1 mg Zofran IV 4 mg Zofran IV 10 mg Reglan IV 30 mg Toradol IV 50 mg Benadryl IV Prescriptions: None Impression: Headache, vomiting Plan: 1. Rest, drink plenty of fluds, Tylenol and motrin as needed. 2. Follow up with primary care provider 3. Return to ED as needed as discussed Definitive disposition and diagnosis as appropriate pending reevaluation and review of above. 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 Musculoskeletal History: Reports: Fracture Other Musculoskeletal History: right ankle fracture Neurological History: Reports: None Psychiatric History: Reports: None Endocrine/Metabolic History: Reports: None Hematologic History: Reports: None Immunologic History: Reports: None Oncologic (Cancer) History: Reports: None Dermatologic History: Reports: None - Infectious Disease History Infectious Disease History: Reports: None - Past Surgical History Head Surgeries/Procedures: Reports: None HEENT Surgical History: Reports: Adenoidectomy, Myringotomy w Tube(s), Tonsillectomy, Other (See Below) Social & Family History - Family History Family Medical History: Noncontributory - Caffeine Use Caffeine Use: Reports: Coffee, Soda ED ROS GENERAL - Review of Systems Review Of Systems: ROS reveals no pertinent complaints other than HPI. - Physical Exam Exam: See Below (See dictation) Course - Vital Signs Last Recorded V/S: Last Vital Signs Temp 97.5 F 11/04/18 12:29 Pulse 122 H 11/04/18 12:29 Resp 18 11/04/18 12:29 BP 122/92 H 11/04/18 12:29 Pulse Ox 99 11/04/18 12:29 - Orders/Labs/Meds Orders: Active Orders 24 hr Category Date Time Status HCG QUALITATIVE,URINE [URCHEM] Stat Lab 11/04/18 12:35 Ordered Sodium Chloride 0.9% [Saline Flush] Med 11/04/18 12:35 Active 10 ml FLUSH ASDIRECTED PRN Sodium Chloride 0.9% [Saline Flush] Med 11/04/18 12:35 Active 2.5 ml FLUSH ASDIRECTED PRN Saline Lock Insert [OM.PC] Stat Oth 11/04/18 12:35 Ordered Medication Orders Sodium Chloride (Saline Flush) 10 ml FLUSH ASDIRECTED PRN PRN Reason: Keep Vein Open Last Admin: 11/04/18 12:53 Dose: 10 ml Sodium Chloride (Saline Flush) 2.5 ml FLUSH ASDIRECTED PRN PRN Reason: Keep Vein Open Last Admin: 11/04/18 12:53 Dose: 2.5 ml Labs: Laboratory Tests 11/04/18 11/04/18 Range/Units 12:40 12:40 WBC 10.14 (4.0-11.0) K/uL RBC 4.78 (4.30-5.90) M/uL Hgb 13.0 (12.0-16.0) g/dL Hct 39.6 (36.0-46.0) % MCV 82.8 (80.0-98.0) fL MCH 27.2 (27.0-32.0) pg MCHC 32.8 (31.0-37.0) g/dL RDW Std Deviation 44.4 (28.0-62.0) fl RDW Coeff of David 15 (11.0-15.0) % Plt Count 292 (150-400) K/uL MPV 8.50 (7.40-12.00) fL Neut % (Auto) 74.5 (48.0-80.0) % Lymph % (Auto) 17.9 (16.0-40.0) % [place] % (Auto) 6.6 (0.0-15.0) % Eos % (Auto) 0.8 (0.0-7.0) % Baso % (Auto) 0.2 (0.0-1.5) % Neut # (Auto) 7.6 H (1.4-5.7) K/uL Lymph # (Auto) 1.8 (0.6-2.4) K/uL [place] # (Auto) 0.7 (0.0-0.8) K/uL Eos # (Auto) 0.1 (0.0-0.7) K/uL Baso # (Auto) 0.0 (0.0-0.1) K/uL Nucleated RBC % 0.0 /100WBC Nucleated RBCs # 0 K/uL Sodium 137 (136-145) mmol/L Potassium 3.8 (3.5-5.1) mmol/L Chloride 102 (98-107) mmol/L Carbon Dioxide 25.3 (21.0-32.0) mmol/L BUN 12 (7.0-18.0) mg/dL Creatinine 0.7 (0.6-1.0) mg/dL Est Cr Clr Drug Dosing 113.43 mL/min Estimated GFR (MDRD) > 60.0 ml/min Glucose 107 H (74-106) mg/dL Calcium 9.2 (8.5-10.1) mg/dL Total Bilirubin 0.7 (0.2-1.0) mg/dL AST 20 (15-37) IU/L ALT 20 (14-63) IU/L Alkaline Phosphatase 92 (46-116) U/L Total Protein 8.0 (6.4-8.2) g/dL Albumin 3.9 (3.4-5.0) g/dL Globulin 4.1 H (2.6-4.0) g/dL Albumin/Globulin Ratio 1.0 (0.9-1.6) Meds: Medications Generic Name Dose Route Start Last Admin Trade Name Philipp PRN Reason Stop Dose Admin Sodium Chloride 10 ml 11/04/18 12:35 11/04/18 12:53 Saline Flush FLUSH 10 ml ASDIRECTED PRN Administration Keep Vein Open Sodium Chloride 2.5 ml 11/04/18 12:35 11/04/18 12:53 Saline Flush FLUSH 2.5 ml ASDIRECTED PRN Administration Keep Vein Open Discontinued Medications Generic Name Dose Route Start Last Admin Trade Name Freq PRN Reason Stop Dose Admin Diphenhydramine HCl 50 mg 11/04/18 12:54 11/04/18 13:14 Benadryl IVPUSH 11/04/18 12:55 50 mg ONETIME ONE Administration Sodium Chloride 1,000 mls @ 999 mls/hr 11/04/18 12:35 11/04/18 12:53 Normal Saline IV 11/04/18 13:35 999 mls/hr STAT ONE Administration Ketorolac Tromethamine 30 mg 11/04/18 12:54 11/04/18 13:12 Toradol IVPUSH 11/04/18 12:55 30 mg ONETIME ONE Administration Metoclopramide HCl 10 mg 11/04/18 12:54 11/04/18 13:14 Reglan IV 11/04/18 12:55 10 mg ONETIME ONE Administration Ondansetron HCl 4 mg 11/04/18 12:35 11/04/18 12:53 Zofran IVPUSH 11/04/18 12:36 4 mg ONETIME ONE Administration Departure - Departure Time of Disposition: 14:33 Disposition: Home, Self-Care 01 Condition: Good Clinical Impression: Headache, Vomiting - Discharge Information Referrals: Cullen Bridges MD [Primary Care Provider] - Forms: ED Department Discharge Additional Instructions: The following information is given to patients seen in the emergency department who are being discharged to home. This information is to outline your options for follow-up care. We provide all patients seen in our emergency department with a follow-up referral. The need for follow-up, as well as the timing and circumstances, are variable depending upon the specifics of your emergency department visit. If you don't have a primary care physician on staff, we will provide you with a referral. We always advise you to contact your personal physician following an emergency department visit to inform them of the circumstance of the visit and for follow-up with them and/or the need for any referrals to a consulting specialist. The emergency department will also refer you to a specialist when appropriate. This referral assures that you have the opportunity for follow-up care with a specialist. All of these measure are taken in an effort to provide you with optimal care, which includes your follow-up. Under all circumstances we always encourage you to contact your private physician who remains a resource for coordinating your care. When calling for follow-up care, please make the office aware that this follow-up is from your recent emergency room visit. If for any reason you are refused follow-up, please contact the [facility] Emergency Department at and asked to speak to the emergency department charge nurse. [facility] Primary Care [address] [place] [id number] [facility] [address] [place] [id number] 1. Rest, drink plenty of fluds, Tylenol and motrin as needed. 2. Follow up with primary care provider 3. Return to ED as needed as discussed - My Orders Last 24 Hours: My Active Orders 11/04/18 12:35 HCG QUALITATIVE,URINE [URCHEM] Stat Sodium Chloride 0.9% [Saline Flush] 10 ml FLUSH ASDIRECTED PRN Sodium Chloride 0.9% [Saline Flush] 2.5 ml FLUSH ASDIRECTED PRN Saline Lock Insert [OM.PC] Stat - Assessment/Plan Last 24 Hours: My Active Orders 11/04/18 12:35 HCG QUALITATIVE,URINE [URCHEM] Stat Sodium Chloride 0.9% [Saline Flush] 10 ml FLUSH ASDIRECTED PRN Sodium Chloride 0.9% [Saline Flush] 2.5 ml FLUSH ASDIRECTED PRN Saline Lock Insert [OM.PC] Stat
[2018-11-04] MEDS ORDERED: diphenhydrAMINE 50 MG/ML SDV IVPUSH ONE (12:54)
[2018-11-04] MEDS ORDERED: Ketorolac 30 MG/ML SDV IVPUSH ONE (12:54)
[2018-11-04] MEDS ORDERED: Metoclopramide 10 MG/2 ML SDV IV ONE (12:54)
[2018-11-04 13:16] LABS: CHLORIDE,CL 102 mmol/L (98-107); SODIUM,NA 137 mmol/L (136-145)
[2018-11-04 14:54] VITALS: BP 118/72
== END 2018-11-04 14:54 | disposition home or self-care (01) ==
LOC: MW.ED 12:10
DX: R51 Headache (principal); R11.10 Vomiting, unspecified; Z79.3 Long term (current) use of hormonal contraceptives
CPT/HCPCS: 36415; 80053; 85025; 96361; 96374; 96375; 99284; J1200; J1885; J2405; J2765; J7040

== ENCOUNTER 2020-06-25 13:04 | Emergency (ER) | payer BC, OTHER ==
--- NOTE | 2020-06-25 13:41 | EDM.PDOC ---
ED HPI GENERAL MEDICAL PROBLEM - General Chief Complaint: Cardiovascular Problem Stated Complaint: DIZZY CHEST FLUTTERS Time Seen by Provider: 06/25/20 13:17 - History of Present Illness INITIAL COMMENTS - FREE TEXT/NARRATIVE: I only read and recorded the EKG I was available for consultation with the ANGELO Price - Related Data Allergies Allergy/AdvReac Type Severity Reaction Status Date / Time No Known Allergies Allergy Verified 06/25/20 13:29 Home Meds: Home Meds Control 1 cap PO DAILY 06/04/16 [History] Sertraline HCl [Zoloft] 75 mg PO DAILY 06/25/20 [History] Past Medical History - Past Health History Medical/Surgical History: Denies Medical/Surgical History Cardiovascular History: Reports: None Respiratory History: Reports: Pneumothorax Gastrointestinal History: Reports: None Genitourinary History: Reports: None 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 Musculoskeletal History: Reports: Fracture Other Musculoskeletal History: right ankle fracture Neurological History: Reports: None Psychiatric History: Reports: None Endocrine/Metabolic History: Reports: None Hematologic History: Reports: None Immunologic History: Reports: None Oncologic (Cancer) History: Reports: None Dermatologic History: Reports: None - Infectious Disease History Infectious Disease History: Reports: None - Past Surgical History Head Surgeries/Procedures: Reports: None HEENT Surgical History: Reports: Adenoidectomy, Myringotomy w Tube(s), Tonsille ctomy, Other (See Below) Social & Family History - Family History Family Medical History: Noncontributory - Tobacco Use Tobacco Use Status *Q: Never Tobacco User - Caffeine Use Caffeine Use: Reports: Energy Drinks, Soda Other Caffeine Use: usually 1 daily - Recreational Drug Use Recreational Drug Use: No ED ROS GENERAL - Review of Systems Review Of Systems: See Below ED EXAM, GENERAL - Physical Exam Exam: See Below #1 Interpretation EKG Interpretation Comments: EKG is normal sinus rhythm rate of 77 bpm normal intervals normal axis no ischemia read and interpreted by me Course - Vital Signs Last Recorded V/S: Last Vital Signs Temp 36.7 C 06/25/20 15:37 Pulse 86 06/25/20 15:37 Resp 16 06/25/20 15:37 BP 114/81 06/25/20 15:37 Pulse Ox 100 06/25/20 15:37 - Orders/Labs/Meds Labs: Laboratory Tests 06/25/20 06/25/2020 Range/Units 13:43 13:50 13:50 WBC 9.62 (4.0-11.0) K/uL RBC 4.80 (4.30-5.90) M/uL Hgb 12.3 (12.0-16.0) g/dL Hct 38.9 (36.0-46.0) % MCV 81.0 (80.0-98.0) fL MCH 25.6 L (27.0-32.0) pg MCHC 31.6 (31.0-37.0) g/dL RDW Std Deviation 43.3 (28.0-62.0) fl RDW Coeff of David 15 (11.0-15.0) % Plt Count 437 H (150-400) K/uL MPV 8.60 (7.40-12.00) fL Neut % (Auto) 59.0 (48.0-80.0) % Lymph % (Auto) 31.9 (16.0-40.0) % [place] % (Auto) 7.8 (0.0-15.0) % Eos % (Auto) 1.0 (0.0-7.0) % Baso % (Auto) 0.3 (0.0-1.5) % Neut # (Auto) 5.7 (1.4-5.7) K/uL Lymph # (Auto) 3.1 H (0.6-2.4) K/uL [place] # (Auto) 0.8 (0.0-0.8) K/uL Eos # (Auto) 0.1 (0.0-0.7) K/uL Baso # (Auto) 0.0 (0.0-0.1) K/uL Nucleated RBC % 0.0 /100WBC Nucleated RBCs # 0 K/uL Sodium 138 (136-145) mmol/L Potassium 3.9 (3.5-5.1) mmol/L Chloride 100 (98-107) mmol/L Carbon Dioxide 26.2 (21.0-32.0) mmol/L BUN 12 (7.0-18.0) mg/dL Creatinine 0.8 (0.6-1.0) mg/dL Est Cr Clr Drug Dosing 98.41 mL/min Estimated GFR (MDRD) > 60.0 ml/min Glucose 91 (74-106) mg/dL Calcium 9.0 (8.5-10.1) mg/dL Total Bilirubin 0.3 (0.2-1.0) mg/dL AST 22 (15-37) IU/L ALT 26 (14-63) IU/L Alkaline Phosphatase 108 (46-116) U/L Troponin I < 0.050 (0.000-0.056) ng/mL Total Protein 8.5 H (6.4-8.2) g/dL Albumin 4.0 (3.4-5.0) g/dL Globulin 4.5 H (2.6-4.0) g/dL Albumin/Globulin Ratio 0.9 (0.9-1.6) HCG, Qual (NEG) Urine Color YELLOW Urine Appearance CLEAR Urine pH 6.0 (5.0-8.0) Ur Specific [place] 1.020 (1.001-1.035) Urine Protein NEGATIVE (NEGATIVE) mg/dL Urine Glucose (UA) 100 H (NEGATIVE) mg/dL Urine Ketones NEGATIVE (NEGATIVE) mg/dL Urine Occult Blood NEGATIVE (NEGATIVE) Urine Nitrite NEGATIVE (NEGATIVE) Urine Bilirubin NEGATIVE (NEGATIVE) Urine Urobilinogen 0.2 (<2.0) EU/dL Ur Leukocyte Esterase NEGATIVE (NEGATIVE) 06/25/20 Range/Units 13:50 WBC (4.0-11.0) K/uL RBC (4.30-5.90) M/uL Hgb (12.0-16.0) g/dL Hct (36.0-46.0) % MCV (80.0-98.0) fL MCH (27.0-32.0) pg MCHC (31.0-37.0) g/dL RDW Std Deviation (28.0-62.0) fl RDW Coeff of David (11.0-15.0) % Plt Count (150-400) K/uL MPV (7.40-12.00) fL Neut % (Auto) (48.0-80.0) % Lymph % (Auto) (16.0-40.0) % [place] % (Auto) (0.0-15.0) % Eos % (Auto) (0.0-7.0) % Baso % (Auto) (0.0-1.5) % Neut # (Auto) (1.4-5.7) K/uL Lymph # (Auto) (0.6-2.4) K/uL [place] # (Auto) (0.0-0.8) K/uL Eos # (Auto) (0.0-0.7) K/uL Baso # (Auto) (0.0-0.1) K/uL Nucleated RBC % /100WBC Nucleated RBCs # K/uL Sodium (136-145) mmol/L Potassium (3.5-5.1) mmol/L Chloride (98-107) mmol/L Carbon Dioxide (21.0-32.0) mmol/L BUN (7.0-18.0) mg/dL Creatinine (0.6-1.0) mg/dL Est Cr Clr Drug Dosing mL/min Estimated GFR (MDRD) ml/min Glucose (74-106) mg/dL Calcium (8.5-10.1) mg/dL Total Bilirubin (0.2-1.0) mg/dL AST (15-37) IU/L ALT (14-63) IU/L Alkaline Phosphatase (46-116) U/L Troponin I (0.000-0.056) ng/mL Total Protein (6.4-8.2) g/dL Albumin (3.4-5.0) g/dL Globulin (2.6-4.0) g/dL Albumin/Globulin Ratio (0.9-1.6) HCG, Qual NEGATIVE (NEG) Urine Color Urine Appearance Urine pH (5.0-8.0) Ur Specific [place] (1.001-1.035) Urine Protein (NEGATIVE) mg/dL Urine Glucose (UA) (NEGATIVE) mg/dL Urine Ketones (NEGATIVE) mg/dL Urine Occult Blood (NEGATIVE) Urine Nitrite (NEGATIVE) Urine Bilirubin (NEGATIVE) Urine Urobilinogen (<2.0) EU/dL Ur Leukocyte Esterase (NEGATIVE) Departure - Departure Time of Disposition: 15:35 Disposition: Home, Self-Care 01 Condition: Good Clinical Impression: Palpitations Instructions: Palpitations, [id number] Referrals: Rogelio Retana MD [Primary Care Provider] - Forms: ED Department Discharge Additional Instructions: The following information is given to patients seen in the emergency department who are being discharged to home. This information is to outline your options for follow-up care. We provide all patients seen in our emergency department with a follow-up referral. The need for follow-up, as well as the timing and circumstances, are variable depending upon the specifics of your emergency department visit. If you don't have a primary care physician on staff, we will provide you with a referral. We always advise you to contact your personal physician following an emergency department visit to inform them of the circumstance of the visit and for follow-up with them and/or the need for any referrals to a consulting specialist. The emergency department will also refer you to a specialist when appropriate. This referral assures that you have the opportunity for follow-up care with a specialist. All of these measure are taken in an effort to provide you with optimal care, which includes your follow-up. Under all circumstances we always encourage you to contact your private physician who remains a resource for coordinating your care. When calling for follow-up care, please make the office aware that this follow-up is from your recent emergency room visit. If for any reason you are refused follow-up, please contact the [facility] Emergency Department at and asked to speak to the emergency department charge nurse. [facility] Primary Care / Internal Medicine, Dr. Bridges [address] [place], [place] [id number] [place] [address] 1. Use the Zio patch as directed and as discussed for 2 weeks. When you are done with this monitor, follow-up with Dr. Bridges in the clinic. His number has been provided above for you to call and establish an appointment time. 2. Follow-up with Dr. Bridges as discussed. Return to the ED as needed and as discussed. Sepsis Event Note (ED) - Evaluation Sepsis Screening Result: No Definite Risk
--- NOTE | 2020-06-25 13:45 | EDM.PDOC ---
ED HPI GENERAL MEDICAL PROBLEM - General Chief Complaint: Cardiovascular Problem Stated Complaint: CHEST FLUTTERS Time Seen by Provider: 06/25/20 13:17 Source of Information: Reports: Patient History Limitations: Reports: No Limitations - History of Present Illness INITIAL COMMENTS - FREE TEXT/NARRATIVE: HISTORY AND PHYSICAL: History of present illness: Patient is a 24-year-old female who presents to the ED today with concern of "chest flutters "that started this morning. Patient describes as a palpitation sensation that she feels at the base of her neck. Patient states not necessarily that she feels like her heart is fast but feels like it is "skipping." Patient states that she did drink a red bull energy drink this morning and does not typically drink energy drinks. Patient states she has had these fluttering sensations off and on over the past 3 to 4 months but has not seen anyone to be evaluated for them. Patient denies any associated chest pressure but states she does get some vague dizzy sensation when it occurs. Patient states that this sensation only lasts for a split second and then resolves but has happened a few times since this morning. Patient states that she had a murmur as a baby but has outgrown this. Patient denies any other health history or any other symptoms or concerns. Patient denies fever, chills, chest pain, shortness of breath, or cough. Denies headache, neck stiff ness, change in vision, syncope, or near syncope. Denies nausea, vomiting, abdominal pain, diarrhea, constipation, or dysuria. Has not noted any blood in urine or stool. Patient has been eating and drinking appropriately. Review of systems: As per history of present illness and below otherwise all systems reviewed and negative. Past medical history: As per history of present illness and as reviewed below otherwise noncontributory. Surgical history: As per history of present illness and as reviewed below otherwise noncontributory. Social history: See social history for further information Family history: As per history of present illness and as reviewed below otherwise noncontributory. Physical exam: General: Patient is alert, oriented, and in no acute distress. Patient sitting comfortably on exam table. Vital stable and reviewed by me. HEENT: Atraumatic, normocephalic, pupils equal and reactive bilaterally, negative for conjunctival pallor or scleral icterus, mucous membranes moist, TMs normal bilaterally, throat clear, neck supple, nontender, trachea midline. No drooling or trismus noted. No meningeal signs. No hot potato voice noted. Lungs: Clear to auscultation, breath sounds equal bilaterally, chest nontender. Heart: S1S2, regular rate and rhythm without overt murmur Abdomen: Soft, nondistended, nontender. Negative for masses or hepatosplenomegaly. Negative for costovertebral tenderness. Pelvis: Stable nontender. Genitourinary: Deferred. Rectal: Deferred. Skin: Intact, warm, dry. No lesions or rashes noted. Extremities: Atraumatic, negative for cords or calf pain. Neurovascular unremarkable. Neuro: Awake, alert, oriented. Cranial nerves II through XII unremarkable. Cerebellum unremarkable. Motor and sensory unremarkable throughout. Exam nonfocal. Notes: Signs and symptoms that would prompt return to the ED thoroughly discussed with patient. Discussed importance for follow-up with a primary care provider/Dr. Bridges. Voices understanding and is agreeable to plan of care. Denies any further questions or concerns at this time. Diagnostics: EKG, CBC, CMP, UA, Serum hcg, CXR Therapeutics: None Prescription: Zio patch for 2 weeks with follow up with Dr. Bridges Impression: Palpitations Plan: 1. Use the Zio patch as directed and as discussed for 2 weeks. When you are done with this monitor, follow-up with Dr. Bridges in the clinic. His number has been provided above for you to call and establish an appointment time. 2. Follow-up with Dr. Bridges as discussed. Return to the ED as needed and as discussed. Definitive disposition and diagnosis as appropriate pending reevaluation and review of above. - Related Data Allergies Allergy/AdvReac Type Severity Reaction Status Date / Time No Known Allergies Allergy Verified 06/25/20 13:29 Home Meds: Home Meds Control 1 cap PO DAILY 06/04/16 [History] Sertraline HCl [Zoloft] 75 mg PO DAILY 06/25/20 [History] Past Medical History - Past Health History Medical/Surgical History: Denies Medical/Surgical History Cardiovascular History: Reports: None Respiratory History: Reports: Pneumothorax Gastrointestinal History: Reports: None Genitourinary History: Reports: None PMO MANAGER History: Reports: None Musculoskeletal History: Reports: Fracture Other Musculoskeletal History: right ankle fracture Neurological History: Reports: None Psychiatric History: Reports: None Endocrine/Metabolic History: Reports: None Hematologic History: Reports: None Immunologic History: Reports: None Oncologic (Cancer) History: Reports: None Dermatologic History: Reports: None - Infectious Disease History Infectious Disease History: Reports: None - Past Surgical History Head Surgeries/Procedures: Reports: None HEENT Surgical History: Reports: Adenoidectomy, Myringotomy w Tube(s), Tonsillectomy, Other (See Below) Social & Family History - Family History Family Medical History: Noncontributory - Tobacco Use Tobacco Use Status *Q: Never Tobacco User - Caffeine Use Caffeine Use: Reports: Energy Drinks, Soda Other Caffeine Use: usually 1 daily - Recreational Drug Use Recreational Drug Use: No ED ROS GENERAL - Review of Systems Review Of Systems: Comprehensive ROS is negative, except as noted in HPI. ED EXAM, GENERAL - Physical Exam Exam: See Below (see dictation) Course - Vital Signs Last Recorded V/S: Last Vital Signs Temp 97.1 F 06/25/20 13:29 Pulse 81 06/25/20 14:51 Resp 16 06/25/20 14:51 BP 109/68 06/25/20 14:51 Pulse Ox 97 06/25/20 14:51 - Orders/Labs/Meds Orders: Active Orders 24 hr Category Date Time Status Cardiac Monitoring [RC] . DIRECTED Care 06/25/20 13:38 Active EKG Documentation Completion [RC] STAT Care 06/25/20 13:38 Active Labs: Laboratory Tests 06/25/20 06/25/20 06/25/20 Range/Units 13:43 13:50 13:50 WBC 9.62 (4.0-11.0) K/uL RBC 4.80 (4.30-5.90) M/uL Hgb 12.3 (12.0-16.0) g/dL Hct 38.9 (36.0-46.0) % MCV 81.0 (80.0-98.0) fL MCH 25.6 L (27.0-32.0) pg MCHC 31.6 (31.0-37.0) g/dL RDW Std Deviation 43.3 (28.0-62.0) fl RDW Coeff of David 15 (11.0-15.0) % Plt Count 437 H (150-400) K/uL MPV 8.60 (7.40-12.00) fL Neut % (Auto) 59.0 (48.0-80.0) % Lymph % (Auto) 31.9 (16.0-40.0) % [place] % (Auto) 7.8 (0.0-15.0) % Eos % (Auto) 1.0 (0.0-7.0) % Baso % (Auto) 0.3 (0.0-1.5) % Neut # (Auto) 5.7 (1.4-5.7) K/uL Lymph # (Auto) 3.1 H (0.6-2.4) K/uL [place] # (Auto) 0.8 (0.0-0.8) K/uL Eos # (Auto) 0.1 (0.0-0.7) K/uL Baso # (Auto) 0.0 (0.0-0.1) K/uL Nucleated RBC % 0.0 /100WBC Nucleated RBCs # 0 K/uL Sodium 138 (136-145) mmol/L Potassium 3.9 (3.5-5.1) mmol/L Chloride 100 (98-107) mmol/L Carbon Dioxide 26.2 (21.0-32.0) mmol/L BUN 12 (7.0-18.0) mg/dL Creatinine 0.8 (0.6-1.0) mg/dL Est Cr Clr Drug Dosing 98.41 mL/min Estimated GFR (MDRD) > 60.0 ml/min Glucose 91 (74-106) mg/dL Calcium 9.0 (8.5-10.1) mg/dL Total Bilirubin 0.3 (0.2-1.0) mg/dL AST 22 (15-37) IU/L ALT 26 (14-63) IU/L Alkaline Phosphatase 108 (46-116) U/L Troponin I < 0.050 (0.000-0.056) ng/mL Total Protein 8.5 H (6.4-8.2) g/dL Albumin 4.0 (3.4-5.0) g/dL Globulin 4.5 H (2.6-4.0) g/dL Albumin/Globulin Ratio 0.9 (0.9-1.6) HCG, Qual (NEG) Urine Color YELLOW Urine Appearance CLEAR Urine pH 6.0 (5.0-8.0) Ur Specific Opp 1.020 (1.001-1.035) Urine Protein NEGATIVE (NEGATIVE) mg/dL Urine Glucose (UA) 100 H (NEGATIVE) mg/dL Urine Ketones NEGATIVE (NEGATIVE) mg/dL Urine Occult Blood NEGATIVE (NEGATIVE) Urine Nitrite NEGATIVE (NEGATIVE) Urine Bilirubin NEGATIVE (NEGATIVE) Urine Urobilinogen 0.2 (<2.0) EU/dL Ur Leukocyte Esterase NEGATIVE (NEGATIVE) 06/25/20 Range/Units 13:50 WBC (4.0-11.0) K/uL RBC (4.30-5.90) M/uL Hgb (12.0-16.0) g/dL Hct (36.0-46.0) % MCV (80.0-98.0) fL MCH (27.0-32.0) pg MCHC (31.0-37.0) g/dL RDW Std Deviation (28.0-62.0) fl RDW Coeff of David (11.0-15.0) % Plt Count (150-400) K/uL MPV (7.40-12.00) fL Neut % (Auto) (48.0-80.0) % Lymph % (Auto) (16.0-40.0) % [place] % (Auto) (0.0-15.0) % Eos % (Auto) (0.0-7.0) % Baso % (Auto) (0.0-1.5) % Neut # (Auto) (1.4-5.7) K/uL Lymph # (Auto) (0.6-2.4) K/uL [place] # (Auto) (0.0-0.8) K/uL Eos # (Auto) (0.0-0.7) K/uL Baso # (Auto) (0.0-0.1) K/uL Nucleated RBC % /100WBC Nucleated RBCs # K/uL Sodium (136-145) mmol/L Potassium (3.5-5.1) mmol/L Chloride (98-107) mmol/L Carbon Dioxide (21.0-32.0) mmol/L BUN (7.0-18.0) mg/dL Creatinine (0.6-1.0) mg/dL Est Cr Clr Drug Dosing mL/min Estimated GFR (MDRD) ml/min Glucose (74-106) mg/dL Calcium (8.5-10.1) mg/dL Total Bilirubin (0.2-1.0) mg/dL AST (15-37) IU/L ALT (14-63) IU/L Alkaline Phosphatase (46-116) U/L Troponin I (0.000-0.056) ng/mL Total Protein (6.4-8.2) g/dL Albumin (3.4-5.0) g/dL Globulin (2.6-4.0) g/dL Albumin/Globulin Ratio (0.9-1.6) HCG, Qual NEGATIVE (NEG) Urine Color Urine Appearance Urine pH (5.0-8.0) Ur Specific Opp (1.001-1.035) Urine Protein (NEGATIVE) mg/dL Urine Glucose (UA) (NEGATIVE) mg/dL Urine Ketones (NEGATIVE) mg/dL Urine Occult Blood (NEGATIVE) Urine Nitrite (NEGATIVE) Urine Bilirubin (NEGATIVE) Urine Urobilinogen (<2.0) EU/dL Ur Leukocyte Esterase (NEGATIVE) Departure - Departure Time of Disposition: 15:18 Disposition: Home, Self-Care 01 Clinical Impression: Palpitations - Discharge Information Referrals: Rogelio Retana MD [Primary Care Provider] - Forms: ED Department Discharge Additional Instructions: The following information is given to patients seen in the emergency department who are being discharged to home. This information is to outline your options for follow-up care. We provide all patients seen in our emergency department with a follow-up referral. The need for follow-up, as well as the timing and circumstances, are variable depending upon the specifics of your emergency department visit. If you don't have a primary care physician on staff, we will provide you with a referral. We always advise you to contact your personal physician following an emergency department visit to inform them of the circumstance of the visit and for follow-up with them and/or the need for any referrals to a consulting specialist. The emergency department will also refer you to a specialist when appropriate. This referral assures that you have the opportunity for follow-up care with a specialist. All of these measure are taken in an effort to provide you with optimal care, which includes your follow-up. Under all circumstances we always encourage you to contact your private physician who remains a resource for coordinating your care. When calling for follow-up care, please make the office aware that this follow-up is from your recent emergency room visit. If for any reason you are refused follow-up, please contact the [facility] Emergency Department at and asked to speak to the emergency department charge nurse. [facility] Primary Care / Internal Medicine, Dr. Bridges [address] [place] [id number] [facility] [address] [place] [id number] 1. Use the Zio patch as directed and as discussed for 2 weeks. When you are done with this monitor, follow-up with Dr. Bridges in the clinic. His number has been provided above for you to call and establish an appointment time. 2. Follow-up with Dr. Bridges as discussed. Return to the ED as needed and as discussed. Sepsis Event Note (ED) - Evaluation Sepsis Screening Result: No Definite Risk - Focused Exam Vital Signs: Vital Signs Temp Pulse Resp BP Pulse Ox 06/25/20 14:51 81 16 109/68 97 06/25/20 13:29 97.1 F 84 16 136/88 99 - My Orders Last 24 Hours: My Active Orders 06/25/20 13:38 Cardiac Monitoring [RC] . DIRECTED EKG Documentation Completion [RC] STAT - Assessment/Plan Last 24 Hours: My Active Orders 06/25/20 13:38 Cardiac Monitoring [RC] . DIRECTED EKG Documentation Completion [RC] STAT
[2020-06-25 14:29] LABS: BLOOD UREA NITROGEN,BUN 12 mg/dL (7.0-18.0); CARBON DIOXIDE,CO2 26.2 mmol/L (21.0-32.0); CHLORIDE,CL 100 mmol/L (98-107); GLUCOSE RANDOM 91 mg/dL (74-106); POTASSIUM,K 3.9 mmol/L (3.5-5.1); SODIUM,NA 138 mmol/L (136-145)
--- NOTE | 2020-06-25 15:02 | CR ---
Indication: Palpitations Technique: Chest 1 view Comparison: 05/16/2018 Findings/Impression: Cardiovascular and mediastinum: Heart size and vasculature are normal in caliber and appearance. Mediastinum is within normal limits. Lungs and pleural space: Lungs are clear. No sign of infiltrate or mass. No sign of pleural effusion. No pneumothorax. Bones and soft tissues: No significant findings. Dictated by Angelo Benavides MD @ Jun 25 2020 3:00PM Signed by Dr. Angelo Benavides @ Jun 25 2020 3:00PM
[2020-06-25 16:11] VITALS: BP 114/81; PULSE 86
== END 2020-06-25 15:37 | disposition home or self-care (01) ==
LOC: MW.ED 13:04
DX: R00.2 Palpitations (principal); R42 Dizziness and giddiness
CPT/HCPCS: 36415; 71045; 71045-26; 80053; 81003; 84484; 84703; 85025; 93005; 93010; 99284; 99285-25

== ENCOUNTER 2021-05-15 13:03 | Emergency (ER) | payer BC | END 2021-05-15 14:30 | disposition left against medical advice (07) | LOC: MW.ED 13:03 | DX: Z53.21 Procedure and treatment not carried out due to patient leaving prior to being seen by health care provider (principal) ==

== ENCOUNTER 2022-04-23 19:41 | Emergency (ER) | payer BC ==
[2022-04-23] MEDS ORDERED: diphenhydrAMINE 50 MG/ML SDV IVPUSH ONE (21:33)
[2022-04-23] MEDS ORDERED: Dextrose 5%-Lactated Ringers 1,000 ML IV STA (21:33)
[2022-04-23] MEDS ORDERED: Prochlorperazine 10 MG/2 ML SDV IVPUSH ONE (21:33)
[2022-04-23] MEDS ORDERED: Ketorolac 30 MG/ML SDV IVPUSH ONE (21:33)
[2022-04-23] MEDS ORDERED: Ondansetron 4 MG/2 ML SDV IVPUSH ONE (21:38)
[2022-04-23] MEDS ORDERED: Acetaminophen 500 MG Tab PO ONE (21:38)
[2022-04-24 00:32] VITALS: BP 102/65; PULSE 84
== END 2022-04-24 00:27 | disposition home or self-care (01) ==
LOC: MW.ED 19:41
DX: O99.351 Diseases of the nervous system complicating pregnancy, first trimester (principal); G43.909 Migraine, unspecified, not intractable, without status migrainosus; Z91.048 Other nonmedicinal substance allergy status; Z91.040 Latex allergy status; Z3A.10 10 weeks gestation of pregnancy
CPT/HCPCS: 96361; 96374; 99283; A9270; J2405; J7121

== ENCOUNTER 2022-06-18 12:10 | Emergency (ER) | payer BC ==
[2022-06-18] MEDS ORDERED: Lidocaine 5% 700 MG Patch TRDERM ONE (13:36)
== END 2022-06-18 15:37 ==
LOC: MW.ED 12:10
DX: O9A.212 Injury, poisoning and certain other consequences of external causes complicating pregnancy, second trimester (principal); R51.9 Headache, unspecified; Z3A.18 18 weeks gestation of pregnancy
CPT/HCPCS: 70450; 72125; 99284; A9270